=== PATIENT | female | born 1995 | race Caucasian/White ===

== ENCOUNTER 2017-01-10 15:12 | Emergency (ER) | payer OTHER ==
[2017-01-10 15:54] VITALS: BP 115/80
--- NOTE | 2017-01-10 16:17 | UC ---
FLU HPI - HPI Summary HPI Summary: 21 female presents to with complaints of sore throat, productive cough fatigue, and chest congestion that began 3 days ago and has been worsening. Patient has been taking theraflu without relief. Denies fever, chills and chest pain. No difficulty breathing. Admits to slight headache at times. Denies any other complaints. No PMHx. Son, mother in law and significant other also with same symptoms and diagnosed with URI. - History of Current Complaint Chief Complaint: UCRespiratory Stated Complaint: ST,COUGH,FATIGUE,CHEST KACI Time Seen by Provider: 01/10/17 15:52 Hx Obtained From: Patient Hx Last Menstrual Period: 12/13/16 Onset/Duration: Sudden Onset, Lasting Days, Still Present, Worse Since Severity Currently: Mild Severity Initially: Moderate Pain Intensity: 7 Pain Scale Used: 0-10 Numeric Associated Signs & Symptoms: Positive: Myalgia, Cough, Sore Throat, Nasal Congestion, Headache - Allergy/Home Medications Allergies/Adverse Reactions: Allergies Allergy/AdvReac Type Severity Reaction Status Date / Time No Known Allergies Allergy Verified 01/10/17 15:49 PMH/Surg Hx/FS Hx/Imm Hx - Additional Past Medical History Additional PMH: Denies DM and HTN - Surgical History Surgical History: Yes Surgery Procedure, Year, and Place: Tonsils - Family History Known Family History: Positive: None - Social History Alcohol Use: None Substance Use Type: None Smoking Status (MU): Never Smoked Tobacco - Immunization History Most Recent Influenza Vaccination: no Review of Systems Constitutional: Negative ENT: Sore Throat, Nasal Discharge Respiratory: Cough Cardiovascular: Negative Gastrointestinal: Negative Musculoskeletal: Myalgia Neurological: Headache All Other Systems Reviewed And Are Negative: Yes Physical Exam Triage Information Reviewed: Yes Appearance: Well-Appearing, No Pain Distress, Well-Nourished Vital Signs: Initial Vital Signs Temp 97.9 F 01/10/17 15:50 Pulse 98 01/10/17 15:50 Resp 16 01/10/17 15:50 BP 115/80 01/10/17 15:50 Pulse Ox 98 01/10/17 15:50 Vital Signs Reviewed: Yes Eyes: Positive: Conjunctiva Clear ENT: Positive: Normal ENT inspection, Hearing grossly normal, Pharynx normal, Nasal congestion, TMs normal. Negative: Tonsillar swelling, Tonsillar exudate, Trismus, Muffled voice, Sinus tenderness Neck: Positive: Supple, Nontender, No Lymphadenopathy Respiratory: Positive: Chest non-tender, Lungs clear, Normal breath sounds, No respiratory distress, No accessory muscle use. Negative: Respiratory distress, Crackles, Rhonchi, Stridor, Wheezing Cardiovascular Exam: Normal Cardiovascular: Positive: RRR, No Murmur, Pulses Normal Musculoskeletal: Positive: Strength Intact Neurological: Positive: Alert Skin Exam: Normal Flu Course/Dx - Course Course Of Treatment: rapid strep obtained and negative. appears to be suffering from URI due to HPI, PE findings and vital signs. No other concerns at this time. Symptomatic measures, mucinex, fluids, rest, ibuprofen and chloraseptic spray. tessaslon pearls given for cough. aware of worsening signs and symptoms to watch out for. follow up with PCP. - Differential Dx/Diagnosis Differential Diagnosis/HQI/PQRI: Influenza, Upper Respiratory Infection, Other - pharyngitis Provider Diagnoses: URI Discharge - Discharge Plan Condition: Stable Disposition: HOME Prescriptions: Benzonatate CAP* [Tessalon 100 MG CAP*] 100 mg PO TID #15 cap Patient Education Materials: Upper Respiratory Infection (ED) Referrals: [facility] [Outside] Additional Instructions: Recommend taking Mucinex-D to help with congestion daily, while symptoms persist. Tessalon pearls as prescribed to help with cough especially at bedtime. Increase fluid intake, get plenty of rest. Salt water gargles. Wash hands, cover mouth. Chloraseptic spray over the counter to help soothe throat. Ibuprofen/tylenol as needed for headache and discomfort.
== END 2017-01-10 16:34 | disposition home or self-care (01) ==
LOC: UCCORT 15:12
DX: J06.9 Acute upper respiratory infection, unspecified (principal)
CPT/HCPCS: 87651; 99212; G0463

== ENCOUNTER 2018-03-30 09:56 | Emergency (ER) | payer OTHER ==
[2018-03-30 10:39] VITALS: BP 126/81
--- NOTE | 2018-03-30 11:20 | UC ---
FLU HPI - HPI Summary HPI Summary: 4 day history of congestion, cough, and fever, initially 102. Has continued malaise and mild shortness of breath, feels fatigued. 18mo son has influenza A. - History of Current Complaint Chief Complaint: UCRespiratory Stated Complaint: FEVER, COUGH Time Seen by Provider: 03/30/18 11:13 Hx Obtained From: Patient Hx Last Menstrual Period: 03/22/18 Onset/Duration: Gradual Onset, Lasting Days - 4 Severity Currently: Mild Severity Initially: Moderate Pain Intensity: 0 Associated Signs & Symptoms: Positive: T Max - 102 - Allergy/Home Medications Allergies/Adverse Reactions: Allergies Allergy/AdvReac Type Severity Reaction Status Date / Time No Known Allergies Allergy Verified 03/30/18 10:36 Home Medications: Home Medications NK [No Home Medications Reported] 03/30/18 [History Confirmed 03/30/18] PMH/Surg Hx/FS Hx/Imm Hx Previously Healthy: Yes - Surgical History Surgical History: Yes Surgery Procedure, Year, and Place: Tonsils - Family History Known Family History: Positive: None - Social History Occupation: Employed Full-time Lives: With Family Alcohol Use: None Substance Use Type: None Smoking Status (MU): Never Smoked Tobacco - Immunization History Most Recent Influenza Vaccination: no Review of Systems All Other Systems Reviewed And Are Negative: Yes Constitutional: Positive: Fever, Fatigue Skin: Positive: Negative Eyes: Positive: Negative ENT: Positive: Negative Respiratory: Positive: Shortness Of Breath, Cough Cardiovascular: Positive: Negative Gastrointestinal: Positive: Negative Genitourinary: Positive: Negative Motor: Positive: Negative Neurovascular: Positive: Negative Musculoskeletal: Positive: Negative Neurological: Positive: Negative Psychological: Positive: Negative Is Patient Immunocompromised?: No Physical Exam Triage Information Reviewed: Yes Appearance: Ill-Appearing - looks mildly unwell, Obese Vital Signs: Initial Vital Signs Temp 96.7 F 03/30/18 10:36 Pulse 83 03/30/18 10:36 Resp 16 03/30/18 10:36 BP 126/81 03/30/18 10:36 Pulse Ox 99 03/30/18 10:36 ENT: Positive: Pharynx normal, TMs normal Neck: Positive: Supple, Nontender, No Lymphadenopathy Respiratory: Positive: Lungs clear, Normal breath sounds Cardiovascular: Positive: RRR, No Murmur Musculoskeletal Exam: Normal Neurological Exam: Normal Psychological Exam: Normal Skin Exam: Normal Diagnostics - Laboratory Diagnostic Studies Completed/Ordered: + flu A Flu Course/Dx - Course Course Of Treatment: supportive treatment - Differential Dx/Diagnosis Provider Diagnosis: Influenza A Discharge - Sign-Out/Discharge Documenting (check all that apply): Patient Departure All imaging exams completed and their final reports reviewed: No Studies - Discharge Plan Condition: Stable Disposition: HOME Patient Education Materials: Influenza (ED) Referrals: No Primary Care Phys,NOPCP [Primary Care Provider] - Additional Instructions: Rest at home with increased fluids. Use ibuprofen 600 to 800mg every 6 hours for the pain of the sore throat, and Zarbees lozenges can help to relieve the harshness of the cough. Take lots of warm drinks with lemon and honey. - Billing Disposition and Condition Condition: STABLE Disposition: Home
[2018-03-30 11:32] LABS: Influenza A Molecular POSITIVE (Negative)
== END 2018-03-30 11:50 | disposition home or self-care (01) ==
LOC: UCCORT 09:56
DX: J10.1 Influenza due to other identified influenza virus with other respiratory manifestations (principal)
CPT/HCPCS: 99211; G0463